=== PATIENT | female | born 1955 | race Caucasian/White ===

== ENCOUNTER 2016-09-20 22:19 | Emergency (ER) | payer OTHER ==
[~2016-09-20] VITALS: Ht 162.6 cm; Wt 103.9 kg
[2016-09-20] MEDS ORDERED: GLUCOPHAGE1000 MG PO (22:34)
[2016-09-20] MEDS ORDERED: WELLBUTRIN SR100 MG PO (22:34)
[2016-09-20] MEDS ORDERED: BP MEDICINE (22:35)
[2016-09-20] MEDS ORDERED: HIGH CHOLESTEROL (22:35)
[2016-09-20] MEDS ORDERED: LATUDA20 MG PO (22:35)
[2016-09-20] MEDS ORDERED: DELTASONE20 MG PO (23:16)
[2016-09-20] MEDS ORDERED: MOBIC15 MG PO (23:16)
[2016-09-20] MEDS ORDERED: DOXYCYCLINE 10100 MG PO (23:16)
[2016-09-20] MEDS ORDERED: NEOMYCIN-POLY-7.5 ML OP (23:16)
[2016-09-20 23:54] VITALS: BP 140/80
== END 2016-09-20 23:57 | disposition home or self-care (01) ==
LOC: ER 22:19
DX: J18.9 Pneumonia, unspecified organism (principal); J02.9 Acute pharyngitis, unspecified; H10.9 Unspecified conjunctivitis; F32.9 Major depressive disorder, single episode, unspecified; Z86.718 Personal history of other venous thrombosis and embolism; Z88.0 Allergy status to penicillin; Z88.5 Allergy status to narcotic agent